=== PATIENT | female | born 1995 | race Caucasian/White ===

== ENCOUNTER 2025-06-04 14:34 | Outpatient (CLI) | payer BC, SELFPAY | END 2025-06-04 14:35 | disposition home or self-care (01) | PROVIDERS: Visit Provider Internal Medicine | DX: L50.9 Urticaria, unspecified (principal) | CPT/HCPCS: 80053; 84443 ==

== ENCOUNTER 2025-06-10 13:39 | Outpatient (CLI) | payer BC, SELFPAY ==
--- NOTE | 2025-06-10 14:00 | CRLHL7_ITS ---
For Patients: As a result of the Century Cures Act, medical imaging exams and procedure reports are released immediately into your electronic medical record. You may view this report before your referring provider. If you have questions, please contact your health care provider. Indication: LUMP LEFT APEX AREA X 8 WEEKS TENDER TO THE TOUCH Technique: CT Chest 75CC ISOVUE 370 intravenous contrast Please note that all CT scans at this facility use dose modulation, iterative reconstruction, and/or weight-based dosing when appropriate to reduce radiation dose to as low as reasonably achievable. Comparison: None Findings: The thyroid gland is unremarkable. No mediastinal, hilar or axillary adenopathy. Thoracic inlet is unremarkable. Upper abdomen within normal limits. No fracture or intrinsic osseous lesion. No soft tissue fluid collection or mass. Clear lungs without infiltrate, edema, effusion, pneumothorax or nodule. Impression: Normal CT chest. No suspicious findings. Please note that all CT scans at this facility use dose modulation, iterative reconstruction, and/or weight-based dosing when appropriate to reduce radiation dose to as low as reasonably achievable. Dictated by Manuel Nails MD @ 06/10/2025 2:37:43 PM (Electronically Signed)
== END 2025-06-10 13:40 | disposition home or self-care (01) ==
LOC: CT 13:40
PROVIDERS: Visit Provider Internal Medicine
DX: R22.2 Localized swelling, mass and lump, trunk (principal)
CPT/HCPCS: 71260; Q9967